=== PATIENT | male | born 1970 | race African-American/Black ===

== ENCOUNTER 2020-02-06 17:38 | Inpatient (IN) | payer MEDICAID ==
[2020-02-06 18:18] LABS: BASOPHILS % (AUTO) 0.3 %; EOSINOPHILS % (AUTO) 16.1 %; HGB - HEMOGLOBIN 13.3 g/dL (14.0-18.0); LYMPHOCYTES % (AUTO) 11.3 %; MEAN CORPUSCULAR HEMOGLOBIN 31.6 pg (27.0-31.0); MEAN CORPUSCULAR HGB CONC 33.6 g/dL (32.0-36.0); MEAN CORPUSCULAR VOLUME 94.1 fL (80.0-94.0); MONOCYTES % (AUTO) 2.7 %; NEUTROPHILS % (AUTO) 67.9 %; PLT - PLATELET COUNT 284 10^3/uL (130-450); RED BLOOD COUNT 4.21 10^6/uL (4.70-6.10); RED CELL DISTRIBUTION WIDTH 11.8 % (12.0-15.0); WHITE BLOOD COUNT 14.4 x10^3/uL (4.8-10.8)
[2020-02-06 18:26] LABS: ABNORMAL LYMPHS % (MANUAL) 0 %
[2020-02-06] MEDS ORDERED: SODIUM CHLORIDE 0.9% 1,000 ML IV STA (18:29)
--- NOTE | 2020-02-06 18:29 | ED Physician Documentation ---
History of Present Illness - Stated complaint Stated Complaint: FEVER, DIFF BREATHING - Chief complaint Chief Complaint: Resp - History obtained from History obtained from: Patient - History of Present Illness Timing: How many days ago (3) - Additonal information Additional information: 49-year-old male presents the emergency department for evaluation of shortness of air right-sided chest pain and fevers. For the last 3 days he reports fevers as high as 102. He states it hurts on the right side of his chest when he takes a deep breath. Nursing triage notes that he presented hypoxic with sat of 85% and was placed on 3L NC. On my exam in the room he is statting 97%. I turned the O2 off during the exam and he remain with sats in the high 90's. he is tachypneic without accesory muscle use No cough, no congestion, no loss of taste or smell. He denies abdominal pain nausea vomiting diarrhea or dysuria. No hemoptysis. He denies any travel or exposure to people who are sick or known Covid contacts. No unilateral leg swelling. He denies a family history of coronary artery disease or pulmonary embolism/DVT. He denies pertinent past medical history including hypertension or diabetes. He takes no routinely prescribed medications. he denies recent travel or travel out of the [facility]. He was born here. Social: 1/2 pack/day tobacco. Denies alcohol or illicit drugs. Review of Systems Constitutional: reports: Fever, Chills Eyes: reports: Reviewed and negative Ears: reports: Loss of hearing Nose: reports: Reviewed and negative Throat: reports: Reviewed and negative Cardiac: reports: Chest pain / pressure. denies: Palpitations, Pedal edema, Calf pain Respiratory: reports: Dyspnea. denies: Cough, Hemoptysis, Wheezing GI: denies: Abdominal Pain, Nausea, Vomiting, Diarrhea, Bloody / black stool : denies: Dysuria, Frequency, Hesitancy, Hematuria Skin: denies: Rash, Lesions Musculoskeletal: denies: Neck pain, Back pain Neurologic: reports: Headache. denies: Generalized weakness, Numbness, Difficulty speaking, Near syncope, Syncope, Altered mental status, LOC PD PAST MEDICAL HISTORY - Past Medical History Past Medical History: No - Past Surgical History Past Surgical History: No - Present Medications Home Medications: Ambulatory Orders Medication Instructions Recorded Confirmed No Known Home Medications 02/06/20 02/06/20 - Allergies Allergies/Adverse Reactions: Allergies Allergy/AdvReac Type Severity Reaction Status Date / Time No Known Drug Allergies Allergy Verified 02/06/20 18:20 - Social History Does the pt smoke?: Yes Smoking Status: Current every day smoker Does the pt drink ETOH?: No Does the pt have substance abuse?: Yes Substance Use and Type: Meth - Immunizations Immunizations are current?: Yes PD ED PE EXPANDED - General General: Alert, Other (appears ill) - HEENT HEENT: PERRL, EOMI, Dry mucous membranes, Pharynx normal - Neck Neck: Supple w/out meningeal sx, Adenopathy, No tenderness - Cardiac Cardiac: Regular Rate, Regular Rhythm, Radial strong equal, Pedal strong equal, Cap refill < 2 sec. No: Murmur Present - Respiratory Respiratory: Labored (tachypneic in ronda 30's), Other (Clear to auscultation upper lung fletcher. Pleural rub heard bilateral lower lung fletcher. No rhonchi wheeze or crackles.). No: Stridor, Accessory mm use, Retractions - Abdomen Abdomen: Decreased BS. No: Tender to palpation - Derm Derm: Normal color, Warm and dry. No: Rash - Extremities Extremities: Pedal Pulses Present. No: Pedal edema bilateral, Right calf TTP/cord, Left calf TTP/cord - Neuro Neuro: Alert and Oriented X 3, CNII-XII intact, Normal speech - GCS Eye Opening: Spontaneous Motor: Obeys Commands Verbal: Oriented Total: 15 Results - Vitals Vitals: Vital Signs - 24 hr 02/06/20 02/06/20 02/06/20 18:00 18:06 18:26 Temperature 38.8 C H Heart Rate 107 H 105 H Respiratory 43 H 34 H Rate Blood Pressure 103/80 107/75 O2 Saturation 100 84 L 100 02/06/20 02/06/20 02/06/20 18:50 19:20 19:50 Temperature Heart Rate 108 H 95 104 H Respiratory 30 H 28 H 33 H Rate Blood Pressure 100/60 108/78 106/78 O2 Saturation 100 95 100 02/06/20 20:00 Temperature Heart Rate 103 H Respiratory 34 H Rate Blood Pressure O2 Saturation 100 Oxygen O2 Source Nasal cannula Oxygen Flow Rate 4 - EKG (time done) 1831 Rate: Rate (enter#) (99) Rhythm: NSR [place]: Normal Intervals: Normal ME QRS: Normal Ischemia: ST elevation c/w repol Compare to prior EKG: Old EKG unavailable Computer interpretation: Agree with computer - Labs Labs: Laboratory Tests 02/06/20 02/06/20 02/06/20 18:06 18:06 18:06 WBC 14.4 H RBC 4.21 L Hgb 13.3 L Hct 39.6 L MCV 94.1 H MCH 31.6 H MCHC 33.6 RDW 11.8 L Plt Count 284 MPV 9.0 Neut # (Auto) Not Reportable Lymph # (Auto) Not Reportable Blount # (Auto) Not Reportable Eos # (Auto) Not Reportable Baso # (Auto) Not Reportable Absolute Nucleated RBC Not Reportable Total Counted 100 Band Neuts % (Manual) 29 H Reactive Lymphs % (Man) 7 Abnorm Lymph % (Manual) 0 Metamyelocytes % 8 H Nucleated RBC % Not Reportable Neutrophils # (Manual) 9.8 H Lymphocytes # (Manual) 2.3 Monocytes # (Manual) 1.2 H Eosinophils # (Manual) 0.0 Basophils # (Manual) 0.0 Differential Comment MANUAL DIFFERENTIAL Platelet Estimate NORMAL (130-450,000) Platelet Morphology NORMAL APPEARANCE RBC Morph Micro Appear NORMAL APPEARANCE Sodium 135 Potassium 4.2 Chloride 96 L Carbon Dioxide 26 Anion Gap 13.0 BUN 28 H Creatinine 1.7 H Estimated GFR (MDRD) 52 L Glucose 105 H Lactic Acid 3.2 H* Calcium 8.1 L Total Bilirubin 1.0 AST 27 ALT 28 Alkaline Phosphatase 71 Troponin I High Sens B-Natriuretic Peptide Total Protein 7.1 Albumin 3.3 Globulin 3.8 Albumin/Globulin Ratio 0.9 L Urine Color Urine Clarity Urine pH Ur Specific [place] Urine Protein Urine Glucose (UA) Urine Ketones Urine Occult Blood Urine Nitrite Urine Bilirubin Urine Urobilinogen Ur Leukocyte Esterase Urine RBC Urine WBC Ur Squamous Epith Cells Urine Bacteria Urine Culture Comments Nasal Adenovirus (PCR) Nasal B. parapertussis DNA (PCR) Nasal Coronavir 229E PCR Nasal Coronavir HKU1 PCR Nasal Coronavir NL63 PCR Nasal Coronavir OC43 PCR Nasal Enterovir/Rhinovir PCR Nasal Influenza B PCR Nasal Influenza A PCR Nasal Parainfluen 1 PCR Nasal Parainfluen 2 PCR Nasal Parainfluen 3 PCR Nasal Parainfluen 4 PCR Nasal RSV (PCR) Nasal B.pertussis DNA PCR Nasal C.pneumoniae (PCR) Dominik Human Metapneumo PCR Nasal M.pneumoniae (PCR) Nasal SARS-CoV-2 (PCR) 02/06/20 02/06/20 02/06/20 18:07 18:07 18:07 WBC RBC Hgb Hct MCV MCH MCHC RDW Plt Count MPV Neut # (Auto) Lymph # (Auto) Blount # (Auto) Eos # (Auto) Baso # (Auto) Absolute Nucleated RBC Total Counted Band Neuts % (Manual) Reactive Lymphs % (Man) Abnorm Lymph % (Manual) Metamyelocytes % Nucleated RBC % Neutrophils # (Manual) Lymphocytes # (Manual) Monocytes # (Manual) Eosinophils # (Manual) Basophils # (Manual) Differential Comment Platelet Estimate Platelet Morphology RBC Morph Micro Appear Sodium Potassium Chloride Carbon Dioxide Anion Gap BUN Creatinine Estimated GFR (MDRD) Glucose Lactic Acid Calcium Total Bilirubin AST ALT Alkaline Phosphatase Troponin I High Sens 4.8 B-Natriuretic Peptide 78 Total Protein Albumin Globulin Albumin/Globulin Ratio Urine Color Urine Clarity Urine pH Ur Specific [place] Urine Protein Urine Glucose (UA) Urine Ketones Urine Occult Blood Urine Nitrite Urine Bilirubin Urine Urobilinogen Ur Leukocyte Esterase Urine RBC Urine WBC Ur Squamous Epith Cells Urine Bacteria Urine Culture Comments Nasal Adenovirus (PCR) NOT DETECTED Nasal B. parapertussis DNA (PCR) NOT DETECTED Nasal Coronavir 229E PCR NOT DETECTED Nasal Coronavir HKU1 PCR NOT DETECTED Nasal Coronavir NL63 PCR NOT DETECTED Nasal Coronavir OC43 PCR NOT DETECTED Nasal Enterovir/Rhinovir PCR DETECTED A Nasal Influenza B PCR NOT DETECTED Nasal Influenza A PCR NOT DETECTED Nasal Parainfluen 1 PCR NOT DETECTED Nasal Parainfluen 2 PCR NOT DETECTED Nasal Parainfluen 3 PCR NOT DETECTED Nasal Parainfluen 4 PCR NOT DETECTED Nasal RSV (PCR) NOT DETECTED Nasal B.pertussis DNA PCR NOT DETECTED Nasal C.pneumoniae (PCR) NOT DETECTED Dominik Human Metapneumo PCR NOT DETECTED Nasal M.pneumoniae (PCR) NOT DETECTED Nasal SARS-CoV-2 (PCR) NOT DETECTED 02/06/20 19:53 WBC RBC Hgb Hct MCV MCH MCHC RDW Plt Count MPV Neut # (Auto) Lymph # (Auto) [place]ount # (Auto) Eos # (Auto) Baso # (Auto) Absolute Nucleated RBC Total Counted Band Neuts % (Manual) Reactive Lymphs % (Man) Abnorm Lymph % (Manual) Metamyelocytes % Nucleated RBC % Neutrophils # (Manual) Lymphocytes # (Manual) Monocytes # (Manual) Eosinophils # (Manual) Basophils # (Manual) Differential Comment Platelet Estimate Platelet Morphology RBC Morph Micro Appear Sodium Potassium Chloride Carbon Dioxide Anion Gap BUN Creatinine Estimated GFR (MDRD) Glucose Lactic Acid Calcium Total Bilirubin AST ALT Alkaline Phosphatase Troponin I High Sens B-Natriuretic Peptide Total Protein Albumin Globulin Albumin/Globulin Ratio Urine Color YELLOW Urine Clarity CLEAR Urine pH 5.5 Ur Specific [place] 1.020 Urine Protein TRACE Urine Glucose (UA) NEGATIVE Urine Ketones NEGATIVE Urine Occult Blood NEGATIVE Urine Nitrite NEGATIVE Urine Bilirubin NEGATIVE Urine Urobilinogen 2 H Ur Leukocyte Esterase NEGATIVE Urine RBC 0-5 Urine WBC 0-3 Ur Squamous Epith Cells FEW Squamous Urine Bacteria None Seen Urine Culture Comments NOT INDICATED Nasal Adenovirus (PCR) Nasal B. parapertussis DNA (PCR) Nasal Coronavir 229E PCR Nasal Coronavir HKU1 PCR Nasal Coronavir NL63 PCR Nasal Coronavir OC43 PCR Nasal Enterovir/Rhinovir PCR Nasal Influenza B PCR Nasal Influenza A PCR Nasal Parainfluen 1 PCR Nasal Parainfluen 2 PCR Nasal Parainfluen 3 PCR Nasal Parainfluen 4 PCR Nasal RSV (PCR) Nasal B.pertussis DNA PCR Nasal C.pneumoniae (PCR) Dominik Human Metapneumo PCR Nasal M.pneumoniae (PCR) Nasal SARS-CoV-2 (PCR) - Rads (name of study) CXR Radiology: Final report received (Right lung base consolidation and effusion superimposed on mild diffuse strandy opacities. Consider infectious or post obstructive pna) CT angio chest Radiology: Final report received (Dense right middle lobe consolidation with air bronchograms. This is likely infectious or inflammatory. ), See rad report PD MEDICAL DECISION MAKING - ED course Complexity details: reviewed results, re-evaluated patient, considered differential, d/w patient ED course: This is an ill-appearing 49-year-old male who denies any pertinent past medical history that presents with 3 days of fever up to 102 shortness of air and right- sided pleuritic chest pain. He initially presented with some mild hypoxia and tachypnea. He was placed on 3 L nasal cannula with saturations rising to 99%. Screening labs showed moderate leukocytosis of 14,000 with 29% bands. He does have mild renal insufficiency with a creatinine of 1.7. GFR remains greater than 50. Initial lactate was 3.2. 30 mils per kilo fluid resuscitation was initiated. He does meet the criteria for sepsis. Sepsis was identified at 183. Chest x-ray shows fairly large right lower lobe pneumonia. This gentleman was started on broad-spectrum antibiotics with ceftriaxone and azithromycin. CT of the chest shows a dense right middle love consolidation with bronchogram. 2030: I spoke with nocturnal hospitalist Dr. An who agrees to accept the patient for admission. he does request flagyl for better coverage of anerobes as this is an atypical pna for an otherwise well man with no pertinent pmh - Sepsis Event Current Stage of Sepsis: Sepsis Possible source of Sepsis: Pulmonary Mental/Cognitive Status: Alert/Oriented X3 Capillary refill: Less than 2 seconds Peripheral Pulse Strength: 3+ Normal Peripheral Pulse Location: Pedal Bedside ultrasound performed: No Sepsis Comment: Sepsis identified at 183 with elevated lactic acid. Bolus fluids initiated. Abx ordered Departure - Departure Disposition: 66 [facility] DC/Xfer Clinical Impression: Acute kidney insufficiency Pneumonia Qualifiers: Pneumonia type: due to unspecified organism Laterality: right Lung location: lower lobe of lung Qualified Code(s): J18.9 - Pneumonia, unspecified organism Sepsis Qualifiers: Sepsis type: sepsis due to unspecified organism Sepsis acute organ dysfunction status: with acute organ dysfunction Severe sepsis acute organ dysfunction type: acute respiratory failure Acute respiratory failure type: with hypoxia Severe sepsis shock status: without septic shock Qualified Code(s): A41.9 - Sepsis, unspecified organism
[2020-02-06 18:31] LABS: ALBUMIN 3.3 g/dL (3.2-5.5); ALBUMIN/GLOBULIN RATIO 0.9 (1.0-2.2); CALCIUM 8.1 mg/dL (8.5-10.3); CREATININE 1.7 mg/dL (0.6-1.2); TOTAL PROTEIN 7.1 g/dL (6.7-8.2)
[2020-02-06] MEDS ORDERED: LACTATED RINGERS IV STA (18:36)
[2020-02-06] MEDS ORDERED: IOVERSOL 320 100 ML VIAL IVP ONE ×2 (18:45→19:49)
[2020-02-06 18:49] LABS: BAND NEUTROPHILS % (MANUAL) 29 %; LYMPHOCYTES # (MANUAL) 2.3 10^3/uL (1.5-3.5); LYMPHOCYTES % (MANUAL) 9 %; METAMYELOCYTES % (MANUAL) 8 %; MONOCYTES # (MANUAL) 1.2 10^3/uL (0.0-1.0); RBC MORPHOLOGY (MULTIPLE) NORMAL APPEARANCE (NORMAL)
[2020-02-06 18:50] LABS: DIFFERENTIAL COMMENT MANUAL DIFFERENTIAL; PLATELET ESTIMATE, MANUAL NORMAL (130-450,000) (NORMAL); PLATELET MORPHOLOGY NORMAL APPEARANCE (NORMAL)
[2020-02-06] MEDS ORDERED: AZITHROMYCIN INJ 500 MG in SODIUM CHLORIDE 0.9% 250 ML IV STA (19:09)
[2020-02-06] MEDS ORDERED: cefTRIAXone 1 GM in SODIUM CHLORIDE 0.9% MINIBAG 100 ML IV STA (19:09)
[2020-02-06] MEDS ORDERED: cefTRIAXone 1 GM VIAL ONE (19:24)
--- NOTE | 2020-02-06 19:28 | XRAY Report ---
PROCEDURE: Chest 1 View X-Ray INDICATIONS: chest pain TECHNIQUE: One view of the chest was acquired. COMPARISON: None FINDINGS: Surgical changes and devices: None. Lungs and pleura: Moderate sized right lung base opacity, likely combination of consolidation and eff usion which obscures the right diaphragmatic contour. Minor strandy opacities are seen in the perihil ar regions elsewhere. Mediastinum: Mediastinal contours appear normal. Slight cephalization of central vessels, possibly s econdary to technique. Heart size is normal. Bones and chest wall: No suspicious bony lesions. Overlying soft tissues appear unremarkable. IMPRESSION: 1. Right lung base consolidation and effusion superimposed on mild diffuse strandy opacities. Conside r infectious or postobstructive pneumonia. This may be also secondary to underlying liver condition b elow the diaphragm. Reviewed by: Zenobia Guerra MD on 02/06/2020 7:26 PM PST Approved by: Zenobia Guerra MD on 02/06/2020 7:26 PM PST Station ID: [id number]
[2020-02-06 19:29] LABS: C. PNEUMONIAE- RESP PCR PANEL NOT DETECTED
[2020-02-06 20:02] LABS: BILIRUBIN,URINE NEGATIVE (NEGATIVE); GLUCOSE, URINE (UA) NEGATIVE (NEGATIVE); KETONES,URINE (UA) NEGATIVE (NEGATIVE); LEUKOCYTE ESTERASE, URINE NEGATIVE (NEGATIVE); NITRITE,URINE NEGATIVE (NEGATIVE); OCCULT BLOOD,URINE NEGATIVE (NEGATIVE); PH,URINE 5.5 PH (5.0-7.5); PROTEIN,URINE TRACE mg/dL (NEGATIVE); UROBILINOGEN,URINE 2 E.U./dL (NORMAL)
[2020-02-06 20:09] LABS: CLARITY,URINE CLEAR (CLEAR)
[2020-02-06 20:18] LABS: BACTERIA,URINE None Seen /HPF (None Seen); RBC,URINE 0-5 /HPF (0-5); SQUAMOUS EPITHELIAL CELL,UR FEW Squamous (<= Few)
--- NOTE | 2020-02-06 20:19 | CT Report ---
PROCEDURE: ANGIO CHEST W/WO INDICATIONS: fever, sob; right sided pleuritic chest pain CONTRAST: IV CONTRAST: Optiray 320 ml: 80 PO CONTRAST: *NO PO CONTRAST TECHNIQUE: After the administration of intravenous contrast, 2 mm thick sections acquired from the pulmonary api tati to the posterior costophrenic angles. 3-dimensional maximum intensity projection (MIP) coronal a nd sagittal reformats were then acquired through the thorax. For radiation dose reduction, the follow ing was used: automated exposure control, adjustment of mA and/or kV according to patient size. COMPARISON: Correlation made to chest CT performed the same day. FINDINGS: Image quality: Excellent. Pulmonary arteries: Pulmonary arteries are normal in size, and demonstrate no intraluminal filling d efects to suggest central pulmonary embolism. Lungs and pleura: Complete consolidation throughout the right middle lobe. Minor alveolar opacity po steriorly in the right upper lobe and in a patchy distribution throughout the right lower lobe, most confluent at the bases. Tree-in-bud nodular patchy opacity in the left posterior medial lower lung. T here are a few rounded subpleural solid nodules measuring up to 5 mm posteriorly in the left lung as well. Paraseptal emphysematous changes seen in the lung apices. There are air bronchograms throughout the right middle lobe, though right lower lobe airways appear thickened and many are occluded at the base. Minimal right pleural effusion is present. No pneumothorax. Mediastinum: Heart size is normal, without pericardial effusion. There is subcarinal and right hilar adenopathy.. Thoracic aorta is normal in caliber and enhancement. Esophagus is normal in caliber, without hiatal hernia. Bones and chest wall: No suspicious bony lesions. Ribs and thoracic spine appear intact throughout. The thyroid is normal. No axillary or supraclavicular adenopathy. Abdomen: Visualized upper abdominal solid organs appear normal in the early arterial phase of enhanc ement. IMPRESSION: 1. Dense right middle lobe consolidation with air bronchograms. This is likely infectious or inflamma tory. 2. Patchy alveolar consolidation and airway impaction in much of the right lower lobe and to a lesser extent posterior right upper lobe. 3. Mild pneumonitis posterior medially at the left lung base. 4. Several left lung posterior subpleural lung nodules. Follow-up in 6 months to begin to assess for long-term stability is recommended. 5. No pulmonary embolus. Reviewed by: Zenobia Guerra MD on 02/06/2020 8:17 PM PST Approved by: Zenobia Guerra MD on 02/06/2020 8:17 PM PST Station ID: [id number]
[2020-02-06] MEDS ORDERED: ONDANSETRON 4 MG/2 ML VIAL IVP PRN (20:27)
[2020-02-06] MEDS ORDERED: metroNIDAZOLE 500 MG/100 ML 500 MG/100 ML BAG IV ONE (20:27)
[2020-02-06] MEDS ORDERED: oxyCODONE 5 MG TABLET PO PRN (20:27)
[2020-02-06] MEDS ORDERED: SODIUM CHLORIDE FLUSH 0.9% 10 ML SYRINGE IVP PRN (20:27)
[2020-02-06] MEDS ORDERED: ACETAMINOPHEN 325 MG TABLET PO PRN (20:27)
--- NOTE | 2020-02-06 20:35 | HISTORY & PHYSICAL EXAMINATION ---
Chief Complaint - Chief Complaint Chief Complaint: dyspnea History of Present Illness - Admitted From Admitted From:: [facility] ED - History Obtained From Records Reviewed: yes History obtained from: patient - History of Present Illness HPI Comment/Other: Patient is a 49-year-old male with no medical history and currently on no medications who presented to the ED with complaint of dyspnea, hypoxia, tachypnea and a temperature of 102 Fahrenheit. His symptoms have been going on for the past 3 days. He also reports a productive cough of greenish/yellowish sputum. In the ED he was noted to have a temperature as high as 39 C, respiratory rate as high as 30 and oxygen saturation in the 80s on room air. Work-up in the ED included a chest x-ray and a CT angio of the chest which was negative for PE but showed dense right middle and right lower lobe consolidation with air bronchograms. The patient had a white blood cell count of 13 and a lactic acid of 3.2. At bedside he is sleeping but is able to arouse and answer questions appro priately. He denies chest pain, abdominal pain, nausea, vomiting. He denies a previous occurrence of similar symptoms. He smokes heroin and methamphetamine daily. He last did so within 2 hours prior to presentation to the ED. He denies alcohol use and denies ever passing out or blacking out. On auscultation of the lungs he sounds significantly rhonchorous on the right side. He is also tachycardic. As a result of the radiologic, laboratory and clinical findings he was presented for admission for further treatment. History - Past Medical History MRSA Hx?: No Other Past Medical History: Patient denies any medical history - Past Surgical History Other past surgical history: Patient denies any surgical history - Family & Social History Family History Comment/Other: Patient denies any significant family history Social History Notes: He lives alone. He smokes about half a pack of cigarettes daily for the past 8 years. He also smokes methamphetamine and heroin daily. He denies alcohol use. - POLST Patient has POLST: No POLST Status: Full Code Meds/Allgy - Home Medications Home Medications: Ambulatory Orders Medication Instructions Recorded Confirmed No Known Home Medications 02/06/20 02/06/20 - Allergies Allergies/Adverse Reactions: Allergies Allergy/AdvReac Type Severity Reaction Status Date / Time No Known Drug Allergies Allergy Verified 02/06/20 18:20 Review of Systems - Constitutional Constitutional: reports: Fever, Weakness - Eyes Eyes: denies: Pain, Vision loss, Dipolpia - Ears, Nose & Throat Ears, Nose & Throat: denies: Ear pain, Sore throat - Cardiovascular Cariovascular: denies: Irregular heart rate, Chest pain, Edema, Lightheadedness - Respiratory Respiratory: reports: Cough, Sputum production (yellowish-greenish), SOB at rest, SOB with exertion, Pleuritic pain, Other (rhonchous) - Gastrointestinal Gastrointestinal: denies: Abdominal pain, Abdominal distention, Nausea, Vomiting, Coffee grounds emesis, Reflux/heartburn - Genitourinary Genitourinary: denies: Dysuria, Frequency, Urgency, Hematuria, Flank pain - Musculoskeletal Musculoskeletal: denies: Muscle pain, Back pain, Muscle aches, Stiffness - Integumentary Integumentary: denies: Rash, Pruritis, Lesions - Neurological Neurological: reports: General weakness. denies: Focal weakness, Headache, Dizziness - Psychiatric Psychiatric: denies: Depression, Anxiety, Suicidal - Endocrine Endocrine: denies: Polyuria, Polydypsia - Hematologic/Lymphatic Hematologic/Lymphatic: denies: Anemia, Bruising, Petechiae Prior Level of Functionality: Patient is normally independent of activities of daily living Exam - Vital Signs Vital Signs: Vital Signs x48h Temp Pulse Resp BP Pulse Ox 02/06/20 20:00 103 H 34 H 100 02/06/20 19:50 104 H 33 H 106/78 100 02/06/20 19:20 95 28 H 108/78 95 02/06/20 18:50 108 H 30 H 100/60 100 02/06/20 18:26 105 H 34 H 107/75 100 02/06/20 18:06 84 L 02/06/20 18:00 38.8 C H 107 H 43 H 103/80 100 - Physical Exam General Appearance: positive: Alert, Mild distress, Moderate distress Eyes Bilateral: positive: PERRL, EOMI ENT: positive: Dry mucous membranes Neck: positive: No JVD, Trachea midline Respiratory: positive: Chest non-tender, No respiratory distress, Rales, Rhonchi Cardiovascular: positive: No murmur, Tachycardia Abdomen: positive: Non-tender, No organomegaly, Nml bowel sounds, No distention. negative: Guarding, Rebound Back: positive: Nml inspection Skin: positive: Color nml, No rash, Warm, Dry Extremities: positive: Full ROM, Nml appearance, No pedal edema Neurologic/Psychiatric: positive: Oriented x3, Mood/affect nml Sepsis Event Note (H) - Evaluation Current Stage of Sepsis: Sepsis Possible source of Sepsis: positive: Pulmonary - Sepsis Criteria Sepsis Criteria: Recorded Temperature greater than 38.3C or Less than 36C, Re corded Heart Rate greater than 90 bpm, Recorded Respiratory Rate greater than 20, Respiratory: Increasing oxygen requirements, WBC count greater than 10% bands, WBC count greater than 12,000 or less than 4000, Renal: urine output less than 0.5ml/kg/hr for 2 hours or creatinine gr, Metabolic: lactate > 2 mmol/L Conclusion/Plan - Problem List (1) Sepsis Conclusion/Plan: Secondary to pneumonia. Patient's pneumonia is likely due to inhalation of talc and or impurities when smoking methamphetamine and/or heroin. Cannot rule out aspiration as well. Findings on CT scan of the chest are significant/extensive. Patient was given IV hydration in the ED. We will continue IV hydration with normal saline at 150 mils per hour. Patient was started on Rocephin, azithromycin and Flagyl in the ED. If no improvement in patient's clinical symptoms will consider switching antibiotics around 2 vancomycin and Zosyn and also doing a 2D echo. Blood cultures are pending. Initial lactic acid was 3.2. It is trending down. We will continue to monitor. Qualifiers: Sepsis type: sepsis due to unspecified organism Sepsis acute organ dysfunction status: with acute organ dysfunction Severe sepsis acute organ dysfunction type: acute respiratory failure Acute respiratory failure type: with hypoxia Severe sepsis shock status: without septic shock Qualified Code(s): A41.9 - Sepsis, unspecified organism; R65.20 - Severe sepsis without septic shock; J96.01 - Acute respiratory failure with hypoxia (2) Pneumonia Conclusion/Plan: Patient's pneumonia is likely due to inhalation of talc and or impurities when smoking methamphetamine and/or heroin. Cannot rule out aspiration as well. Findings on CT scan of the chest are significant/extensive. Patient was given IV hydration in the ED. We will continue IV hydration with normal saline at 150 mils per hour. Patient was started on Rocephin, azithromycin and Flagyl in the ED. If no improvement in patient's clinical symptoms will consider switching antibiotics around 2 vancomycin and Zosyn and also doing a 2D echo. Blood cultures are pending. Initial lactic acid was 3.2. It is trending down. We will continue to monitor. Will consider repeating imaging (CT chest) in a few days to assess for improvement or progression of patient's infection Qualifiers: Pneumonia type: due to unspecified organism Laterality: right Lung location: lower lobe of lung Qualified Code(s): J18.9 - Pneumonia, unspecified organism (3) Acute kidney insufficiency Conclusion/Plan: Creatinine was 1.7 with a GFR of 52. Likely due to dehydration and infection. Patient was given a bolus of lactated Ringer's in the ED. We will continue IV hydration with normal saline at 150 mils per hour. Anticipating improvement in patient's renal function. Will recheck with a.m. labs. (4) Drug use Conclusion/Plan: Patient smokes methamphetamine and heroin on a daily basis. His last use was about 2 hours before presentation to the ED. This was reflected in patient's urine drug screen. We will avoid any opiate. - Lab Results Fish Bones: 02/06/20 18:06 02/06/20 18:06 Core Measures - Anticipated LOS I expect patient to be DC'd or transferred within 96 hours.: Yes - DVT/VTE - Prophylaxis VTE/DVT Device ordered at admit?: Yes VTE/DVT Prophylaxis med ordered at admit?: Yes
[2020-02-06 21:16] LABS: MUDS CUTOFF CONCENTRATIONS CUTOFF CONC BELOW:
[2020-02-06 21:31] LABS: AMPHETAMINE SCREEN,URINE POSITIVE (NEGATIVE); BENZODIAZEPINES SCREEN, URINE NEGATIVE (NEGATIVE); COCAINE SCREEN URINE NEGATIVE (NEGATIVE); METHADONE SCREEN, URINE NEGATIVE (NEGATIVE); METHAMPHETAMINES SCREEN, URINE POSITIVE (NEGATIVE); OPIATE SCREEN, URINE POSITIVE (NEGATIVE); TRICYCLIC ANTIDEPRESSANT,URINE NEGATIVE (NEGATIVE)
[2020-02-06 21:32] LABS: OXYCODONE SCREEN, URINE NEGATIVE (NEGATIVE); PROPOXYPHENE SCREEN, URINE NEGATIVE (NEGATIVE)
[2020-02-06] MEDS ORDERED: LORazepam 1 MG TABLET PO PRN (21:51)
[2020-02-06] MEDS: SODIUM CHLORIDE 0.9% 1,000 ML IV SCH (22:26)
[2020-02-07] MEDS: SODIUM CHLORIDE FLUSH 0.9% 10 ML SYRINGE IVP SCH ×3 (00:12→17:01)
[2020-02-07] MEDS ORDERED: metroNIDAZOLE 500 MG/100 ML 500 MG/100 ML BAG IV SCH (05:00)
[2020-02-07] MEDS: PANTOPRAZOLE 40 MG TABLET PO SCH (05:56)
[2020-02-07 06:00] LABS: BASOPHILS # (AUTO) 0.1 10^3/uL (0.0-0.1); BASOPHILS % (AUTO) 0.4 %; EOSINOPHILS # (AUTO) 0.3 10^3/uL (0.0-0.7); EOSINOPHILS % (AUTO) 1.7 %; HGB - HEMOGLOBIN 11.5 g/dL (14.0-18.0); LYMPHOCYTES # (AUTO) 1.5 10^3/uL (1.5-3.5); LYMPHOCYTES % (AUTO) 8.4 %; MEAN CORPUSCULAR HEMOGLOBIN 31.2 pg (27.0-31.0); MEAN CORPUSCULAR HGB CONC 33.3 g/dL (32.0-36.0); MEAN CORPUSCULAR VOLUME 93.5 fL (80.0-94.0); MEAN PLATELET VOLUME 8.7 fL (7.4-11.4); MONOCYTES # (AUTO) 0.8 10^3/uL (0.0-1.0); MONOCYTES % (AUTO) 4.8 %; NEUTROPHILS # (AUTO) 14.6 10^3/uL (1.5-6.6); NEUTROPHILS % (AUTO) 84.1 %; PLT - PLATELET COUNT 230 10^3/uL (130-450); RED BLOOD COUNT 3.69 10^6/uL (4.70-6.10); RED CELL DISTRIBUTION WIDTH 11.7 % (12.0-15.0); WHITE BLOOD COUNT 17.3 x10^3/uL (4.8-10.8)
[2020-02-07 06:08] LABS: CREATININE 1.1 mg/dL (0.6-1.2)
[2020-02-07 06:29] LABS: PLATELET ESTIMATE, MANUAL NORMAL (130-450,000) (NORMAL); PLATELET MORPHOLOGY NORMAL APPEARANCE (NORMAL); RBC MORPHOLOGY (MULTIPLE) NORMAL APPEARANCE (NORMAL)
--- NOTE | 2020-02-07 07:19 | PROVIDER PROGRESS NOTE ---
Subjective - Prog Note Date Prog Note Date: 02/07/20 - Subjective Subjective: He reports feeling better. Still has a little dyspnea and cough. Reports no chest pain. He admits to smoking heroin and methamphetamines on a near daily basis. Denies any history of IV drug abuse. He is agreeable to being tested for HIV. Current Medications - Current Medications Current Medications: Active Medications Acetaminophen (Acetaminophen 325 Mg Tablet) 650 mg PO Q4HR PRN PRN Reason: Pain 1 to 4 Azithromycin (Azithromycin 250 Mg Tablet) 500 mg PO DAILY@1700 [facility] Stop: 02/08/20 17:01 Enoxaparin Sodium (Enoxaparin 40 Mg/0.4 Ml Syringe) 40 mg SUBQ DAILY [facility] Last Admin: 02/07/20 08:20 Dose: 40 mg Documented by: Sodium Chloride (Normal Saline 0.9%) 1,000 mls @ 100 mls/hr IV .Q10H [facility] Last Admin: 02/07/20 08:19 Dose: 100 mls/hr Documented by: Ceftriaxone Sodium 2 gm/ (Sodium Chloride) 100 mls @ 200 mls/hr IV DAILY [facility] Ondansetron HCl (Ondansetron 4 Mg/2 Ml Vial) 4 mg IVP Q6HR PRN PRN Reason: Nausea / Vomiting Pantoprazole Sodium (Pantoprazole 40 Mg Tablet) 40 mg PO QDAC [facility] Last Admin: 02/07/20 05:56 Dose: 40 mg Documented by: Sodium Chloride (Sodium Chloride Flush 0.9% 10 Ml Syringe) 10 ml IVP PRN PRN PRN Reason: NEEDED PER PROVIDER ORDERS Last Admin: 02/07/20 08:30 Dose: 10 ml Documented by: Sodium Chloride (Sodium Chloride Flush 0.9% 10 Ml Syringe) 10 ml IVP 0100,0900,1700 [facility] Last Admin: 02/07/20 08:20 Dose: Not Given Documented by: No Known Home Medications 02/06/20 Objective - Vital Signs/Intake & Output Reviewed Vital Signs: Yes Vital Signs: Vital Signs x48h Temp Pulse Resp BP Pulse Ox 02/07/20 04:33 37.4 C 102 H 26 H 114/69 95 02/07/20 00:13 36.7 C 104 H 28 H 111/68 94 Intake & Output: Intake & Output 02/04/20 02/05/20 02/06/2020 23:59 23:59 23:59 23:59 Intake Total 4077.157 100 Output Total 800 225 Balance 3277.157 -125 - Objective General Appearance: positive: No acute distress, Alert Eyes Bilateral: positive: Normal inspection ENT: positive: ENT inspection nml Neck: positive: Nml inspection Respiratory: positive: No respiratory distress, Rhonchi (Left lung field), Other (Diminished breath sounds.). negative: Wheezes, Rales Cardiovascular: positive: Tachycardia. negative: Irregularly irregular, Systolic murmur Abdomen: positive: Non-tender, No distention. negative: Tenderness Skin: positive: Warm, Dry Extremities: positive: Full ROM, No pedal edema Neurologic/Psychiatric: negative: Disoriented to person, Disoriented to place - Lab Results Fish Bones: 02/07/20 05:47 02/07/20 05:47 Other Labs: Lab Results x24hrs 02/07/20 02/07/20 02/07/20 Range/Units 05:47 05:47 05:47 WBC 17.3 H (4.8-10.8) x10^3/uL RBC 3.69 L (4.70-6.10) 10^6/uL Hgb 11.5 L (14.0-18.0) g/dL Hct 34.5 L (42.0-52.0) % MCV 93.5 (80.0-94.0) fL MCH 31.2 H (27.0-31.0) pg MCHC 33.3 (32.0-36.0) g/dL RDW 11.7 L (12.0-15.0) % Plt Count 230 (130-450) 10^3/uL MPV 8.7 (7.4-11.4) fL Neut # (Auto) 14.6 H Lymph # (Auto) 1.5 [place] # (Auto) 0.8 Eos # (Auto) 0.3 Baso # (Auto) 0.1 Absolute Nucleated RBC 0.00 Total Counted Band Neuts % (Manual) (0 - 10) % Reactive Lymphs % (Man) % Abnorm Lymph % (Manual) % Metamyelocytes % ( - 0) % Nucleated RBC % 0.0 Neutrophils # (Manual) (1.5-6.6) 10^3/uL Lymphocytes # (Manual) (1.5-3.5) 10^3/uL Monocytes # (Manual) (0.0-1.0) 10^3/uL Eosinophils # (Manual) (0-0.7) 10^3/uL Basophils # (Manual) (0-0.1) 10^3/uL Differential Comment Manual Slide Review Indicated Platelet Estimate NORMAL (130-450,000) (NORMAL) Platelet Morphology NORMAL APPEARANCE (NORMAL) RBC Morph Micro Appear NORMAL APPEARANCE (NORMAL) Sodium 138 (135-145) mmol/L Potassium 3.7 (3.5-5.0) mmol/L Chloride 106 (101-111) mmol/L Carbon Dioxide 24 (21-32) mmol/L Anion Gap 8.0 (6-13) BUN 23 H (6-20) mg/dL Creatinine 1.1 (0.6-1.2) mg/dL Estimated GFR (MDRD) 86 L (>89) Glucose 88 (70-100) mg/dL Lactic Acid 1.0 (0.5-2.2) mmol/L Calcium 8.0 L (8.5-10.3) mg/dL Total Bilirubin (0.2-1.0) mg/dL AST (10-42) IU/L ALT (10-60) IU/L Alkaline Phosphatase (42-121) IU/L Troponin I High Sens (2.3-19.7) ng/L B-Natriuretic Peptide (5-100) pg/mL Total Protein (6.7-8.2) g/dL Albumin (3.2-5.5) g/dL Globulin (2.1-4.2) g/dL Albumin/Globulin Ratio (1.0-2.2) Urine Color Urine Clarity (CLEAR) Urine pH (5.0-7.5) PH Ur Specific [place] (1.002-1.030) Urine Protein (NEGATIVE) mg/dL Urine Glucose (UA) (NEGATIVE) mg/dL Urine Ketones (NEGATIVE) mg/dL Urine Occult Blood (NEGATIVE) Urine Nitrite (NEGATIVE) Urine Bilirubin (NEGATIVE) Urine Urobilinogen (NORMAL) E.U./dL Ur Leukocyte Esterase (NEGATIVE) Urine RBC (0-5) /HPF Urine WBC (0-3) /HPF Ur Squamous Epith Cells (<= Few) Urine Bacteria (None Seen) /HPF Urine Culture Comments Nasal Adenovirus (PCR) Nasal B. parapertussis DNA (PCR) Nasal Coronavir 229E PCR Nasal Coronavir HKU1 PCR Nasal Coronavir NL63 PCR Nasal Coronavir OC43 PCR Nasal Enterovir/Rhinovir PCR Nasal Influenza B PCR Nasal Influenza A PCR Nasal Parainfluen 1 PCR Nasal Parainfluen 2 PCR Nasal Parainfluen 3 PCR Nasal Parainfluen 4 PCR Nasal RSV (PCR) Nasal B.pertussis DNA PCR Nasal C.pneumoniae (PCR) Dominik Human Metapneumo PCR Nasal M.pneumoniae (PCR) Nasal SARS-CoV-2 (PCR) Urine Opiates Screen (NEGATIVE) Ur Oxycodone Screen (NEGATIVE) Urine Methadone Screen (NEGATIVE) Ur Propoxyphene Screen (NEGATIVE) Ur Barbiturates Screen (NEGATIVE) Ur Tricyclics Screen (NEGATIVE) Ur Phencyclidine Scrn (NEGATIVE) Ur Amphetamine Screen (NEGATIVE) U Methamphetamines Scrn (NEGATIVE) U Benzodiazepines Scrn (NEGATIVE) Urine Cocaine Screen (NEGATIVE) U Cannabinoids Screen (NEGATIVE) 02/07/20 02/06/20 02/06/20 Range/Units 02:25 23:30 20:29 WBC (4.8-10.8) x10^3/uL RBC (4.70-6.10) 10^6/uL Hgb (14.0-18.0) g/dL Hct (42.0-52.0) % MCV (80.0-94.0) fL MCH (27.0-31.0) pg MCHC (32.0-36.0) g/dL RDW (12.0-15.0) % Plt Count (130-450) 10^3/uL MPV (7.4-11.4) fL Neut # (Auto) Lymph # (Auto) [place] # (Auto) Eos # (Auto) Baso # (Auto) Absolute Nucleated RBC Total Counted Band Neuts % (Manual) (0 - 10) % Reactive Lymphs % (Man) % Abnorm Lymph % (Manual) % Metamyelocytes % ( - 0) % Nucleated RBC % Neutrophils # (Manual) (1.5-6.6) 10^3/uL Lymphocytes # (Manual) (1.5-3.5) 10^3/uL Monocytes # (Manual) (0.0-1.0) 10^3/uL Eosinophils # (Manual) (0-0.7) 10^3/uL Basophils # (Manual) (0-0.1) 10^3/uL Differential Comment Manual Slide Review Platelet Estimate (NORMAL) Platelet Morphology (NORMAL) RBC Morph Micro Appear (NORMAL) Sodium (135-145) mmol/L Potassium (3.5-5.0) mmol/L Chloride (101-111) mmol/L Carbon Dioxide (21-32) mmol/L Anion Gap (6-13) BUN (6-20) mg/dL Creatinine (0.6-1.2) mg/dL Estimated GFR (MDRD) (>89) Glucose (70-100) mg/dL Lactic Acid 1.2 2.5 H 2.9 H (0.5-2.2) mmol/L Calcium (8.5-10.3) mg/dL Total Bilirubin (0.2-1.0) mg/dL AST (10-42) IU/L ALT (10-60) IU/L Alkaline Phosphatase (42-121) IU/L Troponin I High Sens (2.3-19.7) ng/L B-Natriuretic Peptide (5-100) pg/mL Total Protein (6.7-8.2) g/dL Albumin (3.2-5.5) g/dL Globulin (2.1-4.2) g/dL Albumin/Globulin Ratio (1.0-2.2) Urine Color Urine Clarity (CLEAR) Urine pH (5.0-7.5) PH Ur Specific [place] (1.002-1.030) Urine Protein (NEGATIVE) mg/dL Urine Glucose (UA) (NEGATIVE) mg/dL Urine Ketones (NEGATIVE) mg/dL Urine Occult Blood (NEGATIVE) Urine Nitrite (NEGATIVE) Urine Bilirubin (NEGATIVE) Urine Urobilinogen (NORMAL) E.U./dL Ur Leukocyte Esterase (NEGATIVE) Urine RBC (0-5) /HPF Urine WBC (0-3) /HPF Ur Squamous Epith Cells (<= Few) Urine Bacteria (None Seen) /HPF Urine Culture Comments Nasal Adenovirus (PCR) Nasal B. parapertussis DNA (PCR) Nasal Coronavir 229E PCR Nasal Coronavir HKU1 PCR Nasal Coronavir NL63 PCR Nasal Coronavir OC43 PCR Nasal Enterovir/Rhinovir PCR Nasal Influenza B PCR Nasal Influenza A PCR Nasal Parainfluen 1 PCR Nasal Parainfluen 2 PCR Nasal Parainfluen 3 PCR Nasal Parainfluen 4 PCR Nasal RSV (PCR) Nasal B.pertussis DNA PCR Nasal C.pneumoniae (PCR) Dominik Human Metapneumo PCR Nasal M.pneumoniae (PCR) Nasal SARS-CoV-2 (PCR) Urine Opiates Screen (NEGATIVE) Ur Oxycodone Screen (NEGATIVE) Urine Methadone Screen (NEGATIVE) Ur Propoxyphene Screen (NEGATIVE) Ur Barbiturates Screen (NEGATIVE) Ur Tricyclics Screen (NEGATIVE) Ur Phencyclidine Scrn (NEGATIVE) Ur Amphetamine Screen (NEGATIVE) U Methamphetamines Scrn (NEGATIVE) U Benzodiazepines Scrn (NEGATIVE) Urine Cocaine Screen (NEGATIVE) U Cannabinoids Screen (NEGATIVE) 02/06/20 02/06/20 02/06/20 Range/Units 19:56 19:53 18:07 WBC (4.8-10.8) x10^3/uL RBC (4.70-6.10) 10^6/uL Hgb (14.0-18.0) g/dL Hct (42.0-52.0) % MCV (80.0-94.0) fL MCH (27.0-31.0) pg MCHC (32.0-36.0) g/dL RDW (12.0-15.0) % Plt Count (130-450) 10^3/uL MPV (7.4-11.4) fL Neut # (Auto) Lymph # (Auto) [place] # (Auto) Eos # (Auto) Baso # (Auto) Absolute Nucleated RBC Total Counted Band Neuts % (Manual) (0 - 10) % Reactive Lymphs % (Man) % Abnorm Lymph % (Manual) % Metamyelocytes % ( - 0) % Nucleated RBC % Neutrophils # (Manual) (1.5-6.6) 10^3/uL Lymphocytes # (Manual) (1.5-3.5) 10^3/uL Monocytes # (Manual) (0.0-1.0) 10^3/uL Eosinophils # (Manual) (0-0.7) 10^3/uL Basophils # (Manual) (0-0.1) 10^3/uL Differential Comment Manual Slide Review Platelet Estimate (NORMAL) Platelet Morphology (NORMAL) RBC Morph Micro Appear (NORMAL) Sodium (135-145) mmol/L Potassium (3.5-5.0) mmol/L Chloride (101-111) mmol/L Carbon Dioxide (21-32) mmol/L Anion Gap (6-13) BUN (6-20) mg/dL Creatinine (0.6-1.2) mg/dL Estimated GFR (MDRD) (>89) Glucose (70-100) mg/dL Lactic Acid (0.5-2.2) mmol/L Calcium (8.5-10.3) mg/dL Total Bilirubin (0.2-1.0) mg/dL AST (10-42) IU/L ALT (10-60) IU/L Alkaline Phosphatase (42-121) IU/L Troponin I High Sens (2.3-19.7) ng/L B-Natriuretic Peptide 78 (5-100) pg/mL Total Protein (6.7-8.2) g/dL Albumin (3.2-5.5) g/dL Globulin (2.1-4.2) g/dL Albumin/Globulin Ratio (1.0-2.2) Urine Color YELLOW Urine Clarity CLEAR (CLEAR) Urine pH 5.5 (5.0-7.5) PH Ur Specific [place] 1.020 (1.002-1.030) Urine Protein TRACE (NEGATIVE) mg/dL Urine Glucose (UA) NEGATIVE (NEGATIVE) mg/dL Urine Ketones NEGATIVE (NEGATIVE) mg/dL Urine Occult Blood NEGATIVE (NEGATIVE) Urine Nitrite NEGATIVE (NEGATIVE) Urine Bilirubin NEGATIVE (NEGATIVE) Urine Urobilinogen 2 H (NORMAL) E.U./dL Ur Leukocyte Esterase NEGATIVE (NEGATIVE) Urine RBC 0-5 (0-5) /HPF Urine WBC 0-3 (0-3) /HPF Ur Squamous Epith Cells FEW Squamous (<= Few) Urine Bacteria None Seen (None Seen) /HPF Urine Culture Comments NOT INDICATED Nasal Adenovirus (PCR) Nasal B. parapertussis DNA (PCR) Nasal Coronavir 229E PCR Nasal Coronavir HKU1 PCR Nasal Coronavir NL63 PCR Nasal Coronavir OC43 PCR Nasal Enterovir/Rhinovir PCR Nasal Influenza B PCR Nasal Influenza A PCR Nasal Parainfluen 1 PCR Nasal Parainfluen 2 PCR Nasal Parainfluen 3 PCR Nasal Parainfluen 4 PCR Nasal RSV (PCR) Nasal B.pertussis DNA PCR Nasal C.pneumoniae (PCR) Dominik Human Metapneumo PCR Nasal M.pneumoniae (PCR) Nasal SARS-CoV-2 (PCR) Urine Opiates Screen POSITIVE H (NEGATIVE) Ur Oxycodone Screen NEGATIVE (NEGATIVE) Urine Methadone Screen NEGATIVE (NEGATIVE) Ur Propoxyphene Screen NEGATIVE (NEGATIVE) Ur Barbiturates Screen NEGATIVE (NEGATIVE) Ur Tricyclics Screen NEGATIVE (NEGATIVE) Ur Phencyclidine Scrn NEGATIVE (NEGATIVE) Ur Amphetamine Screen POSITIVE H (NEGATIVE) U Methamphetamines Scrn POSITIVE H (NEGATIVE) U Benzodiazepines Scrn NEGATIVE (NEGATIVE) Urine Cocaine Screen NEGATIVE (NEGATIVE) U Cannabinoids Screen POSITIVE H (NEGATIVE) 02/06/20 02/06/20 02/06/20 Range/Units 18:07 18:07 18:06 WBC (4.8-10.8) x10^3/uL RBC (4.70-6.10) 10^6/uL Hgb (14.0-18.0) g/dL Hct (42.0-52.0) % MCV (80.0-94.0) fL MCH (27.0-31.0) pg MCHC (32.0-36.0) g/dL RDW (12.0-15.0) % Plt Count (130-450) 10^3/uL MPV (7.4-11.4) fL Neut # (Auto) Lymph # (Auto) [place] # (Auto) Eos # (Auto) Baso # (Auto) Absolute Nucleated RBC Total Counted Band Neuts % (Manual) (0 - 10) % Reactive Lymphs % (Man) % Abnorm Lymph % (Manual) % Metamyelocytes % ( - 0) % Nucleated RBC % Neutrophils # (Manual) (1.5-6.6) 10^3/uL Lymphocytes # (Manual) (1.5-3.5) 10^3/uL Monocytes # (Manual) (0.0-1.0) 10^3/uL Eosinophils # (Manual) (0-0.7) 10^3/uL Basophils # (Manual) (0-0.1) 10^3/uL Differential Comment Manual Slide Review Platelet Estimate (NORMAL) Platelet Morphology (NORMAL) RBC Morph Micro Appear (NORMAL) Sodium (135-145) mmol/L Potassium (3.5-5.0) mmol/L Chloride (101-111) mmol/L Carbon Dioxide (21-32) mmol/L Anion Gap (6-13) BUN (6-20) mg/dL Creatinine (0.6-1.2) mg/dL Estimated GFR (MDRD) (>89) Glucose (70-100) mg/dL Lactic Acid 3.2 H* (0.5-2.2) mmol/L Calcium (8.5-10.3) mg/dL Total Bilirubin (0.2-1.0) mg/dL AST (10-42) IU/L ALT (10-60) IU/L Alkaline Phosphatase (42-121) IU/L Troponin I High Sens 4.8 (2.3-19.7) ng/L B-Natriuretic Peptide (5-100) pg/mL Total Protein (6.7-8.2) g/dL Albumin (3.2-5.5) g/dL Globulin (2.1-4.2) g/dL Albumin/Globulin Ratio (1.0-2.2) Urine Color Urine Clarity (CLEAR) Urine pH (5.0-7.5) PH Ur Specific [place] (1.002-1.030) Urine Protein (NEGATIVE) mg/dL Urine Glucose (UA) (NEGATIVE) mg/dL Urine Ketones (NEGATIVE) mg/dL Urine Occult Blood (NEGATIVE) Urine Nitrite (NEGATIVE) Urine Bilirubin (NEGATIVE) Urine Urobilinogen (NORMAL) E.U./dL Ur Leukocyte Esterase (NEGATIVE) Urine RBC (0-5) /HPF Urine WBC (0-3) /HPF Ur Squamous Epith Cells (<= Few) Urine Bacteria (None Seen) /HPF Urine Culture Comments Nasal Adenovirus (PCR) NOT DETECTED Nasal B. parapertussis DNA (PCR) NOT DETECTED Nasal Coronavir 229E PCR NOT DETECTED Nasal Coronavir HKU1 PCR NOT DETECTED Nasal Coronavir NL63 PCR NOT DETECTED Nasal Coronavir OC43 PCR NOT DETECTED Nasal Enterovir/Rhinovir PCR DETECTED A Nasal Influenza B PCR NOT DETECTED Nasal Influenza A PCR NOT DETECTED Nasal Parainfluen 1 PCR NOT DETECTED Nasal Parainfluen 2 PCR NOT DETECTED Nasal Parainfluen 3 PCR NOT DETECTED Nasal Parainfluen 4 PCR NOT DETECTED Nasal RSV (PCR) NOT DETECTED Nasal B.pertussis DNA PCR NOT DETECTED Nasal C.pneumoniae (PCR) NOT DETECTED Dominik Human Metapneumo PCR NOT DETECTED Nasal M.pneumoniae (PCR) NOT DETECTED Nasal SARS-CoV-2 (PCR) NOT DETECTED Urine Opiates Screen (NEGATIVE) Ur Oxycodone Screen (NEGATIVE) Urine Methadone Screen (NEGATIVE) Ur Propoxyphene Screen (NEGATIVE) Ur Barbiturates Screen (NEGATIVE) Ur Tricyclics Screen (NEGATIVE) Ur Phencyclidine Scrn (NEGATIVE) Ur Amphetamine Screen (NEGATIVE) U Methamphetamines Scrn (NEGATIVE) U Benzodiazepines Scrn (NEGATIVE) Urine Cocaine Screen (NEGATIVE) U Cannabinoids Screen (NEGATIVE) 02/06/20 02/06/20 Range/Units 18:06 18:06 WBC 14.4 H (4.8-10.8) x10^3/uL RBC 4.21 L (4.70-6.10) 10^6/uL Hgb 13.3 L (14.0-18.0) g/dL Hct 39.6 L (42.0-52.0) % MCV 94.1 H (80.0-94.0) fL MCH 31.6 H (27.0-31.0) pg MCHC 33.6 (32.0-36.0) g/dL RDW 11.8 L (12.0-15.0) % Plt Count 284 (130-450) 10^3/uL MPV 9.0 (7.4-11.4) fL Neut # (Auto) Not Reportable Lymph # (Auto) Not Reportable [place] # (Auto) Not Reportable Eos # (Auto) Not Reportable Baso # (Auto) Not Reportable Absolute Nucleated RBC Not Reportable Total Counted 100 Band Neuts % (Manual) 29 H (0 - 10) % Reactive Lymphs % (Man) 7 % Abnorm Lymph % (Manual) 0 % Metamyelocytes % 8 H ( - 0) % Nucleated RBC % Not Reportable Neutrophils # (Manual) 9.8 H (1.5-6.6) 10^3/uL Lymphocytes # (Manual) 2.3 (1.5-3.5) 10^3/uL Monocytes # (Manual) 1.2 H (0.0-1.0) 10^3/uL Eosinophils # (Manual) 0.0 (0-0.7) 10^3/uL Basophils # (Manual) 0.0 (0-0.1) 10^3/uL Differential Comment MANUAL DIFFERENTIAL Manual Slide Review Platelet Estimate NORMAL (130-450,000) (NORMAL) Platelet Morphology NORMAL APPEARANCE (NORMAL) RBC Morph Micro Appear NORMAL APPEARANCE (NORMAL) Sodium 135 (135-145) mmol/L Potassium 4.2 (3.5-5.0) mmol/L Chloride 96 L (101-111) mmol/L Carbon Dioxide 26 (21-32) mmol/L Anion Gap 13.0 (6-13) BUN 28 H (6-20) mg/dL Creatinine 1.7 H (0.6-1.2) mg/dL Estimated GFR (MDRD) 52 L (>89) Glucose 105 H (70-100) mg/dL Lactic Acid (0.5-2.2) mmol/L Calcium 8.1 L (8.5-10.3) mg/dL Total Bilirubin 1.0 (0.2-1.0) mg/dL AST 27 (10-42) IU/L ALT 28 (10-60) IU/L Alkaline Phosphatase 71 (42-121) IU/L Troponin I High Sens (2.3-19.7) ng/L B-Natriuretic Peptide (5-100) pg/mL Total Protein 7.1 (6.7-8.2) g/dL Albumin 3.3 (3.2-5.5) g/dL Globulin 3.8 (2.1-4.2) g/dL Albumin/Globulin Ratio 0.9 L (1.0-2.2) Urine Color Urine Clarity (CLEAR) Urine pH (5.0-7.5) PH Ur Specific [place] (1.002-1.030) Urine Protein (NEGATIVE) mg/dL Urine Glucose (UA) (NEGATIVE) mg/dL Urine Ketones (NEGATIVE) mg/dL Urine Occult Blood (NEGATIVE) Urine Nitrite (NEGATIVE) Urine Bilirubin (NEGATIVE) Urine Urobilinogen (NORMAL) E.U./dL Ur Leukocyte Esterase (NEGATIVE) Urine RBC (0-5) /HPF Urine WBC (0-3) /HPF Ur Squamous Epith Cells (<= Few) Urine Bacteria (None Seen) /HPF Urine Culture Comments Nasal Adenovirus (PCR) Nasal B. parapertussis DNA (PCR) Nasal Coronavir 229E PCR Nasal Coronavir HKU1 PCR Nasal Coronavir NL63 PCR Nasal Coronavir OC43 PCR Nasal Enterovir/Rhinovir PCR Nasal Influenza B PCR Nasal Influenza A PCR Nasal Parainfluen 1 PCR Nasal Parainfluen 2 PCR Nasal Parainfluen 3 PCR Nasal Parainfluen 4 PCR Nasal RSV (PCR) Nasal B.pertussis DNA PCR Nasal C.pneumoniae (PCR) Dominik Human Metapneumo PCR Nasal M.pneumoniae (PCR) Nasal SARS-CoV-2 (PCR) Urine Opiates Screen (NEGATIVE) Ur Oxycodone Screen (NEGATIVE) Urine Methadone Screen (NEGATIVE) Ur Propoxyphene Screen (NEGATIVE) Ur Barbiturates Screen (NEGATIVE) Ur Tricyclics Screen (NEGATIVE) Ur Phencyclidine Scrn (NEGATIVE) Ur Amphetamine Screen (NEGATIVE) U Methamphetamines Scrn (NEGATIVE) U Benzodiazepines Scrn (NEGATIVE) Urine Cocaine Screen (NEGATIVE) U Cannabinoids Screen (NEGATIVE) ABX Reporting Has patient been on IV antibiotics over the past 48 hours?: Yes Sepsis Event Note (H) - Evaluation Current Stage of Sepsis: Severe sepsis Possible source of Sepsis: positive: Pulmonary - Sepsis Criteria Sepsis Criteria: Recorded Temperature greater than 38.3C or Less than 36C, Recorded Heart Rate greater than 90 bpm, Recorded Respiratory Rate greater than 20, Respiratory: Increasing oxygen requirements, WBC count greater than 10% bands, WBC count greater than 12,000 or less than 4000, Renal: urine output less than 0.5ml/kg/hr for 2 hours or creatinine gr, Metabolic: lactate > 2 mmol/L Assessment/Plan - Problem List (1) Severe sepsis Impression: Presents with severe sepsis given the leukocytosis with bands, tachycardia, fever, elevated acidosis, and renal insufficiency. This is secondary to the community-acquired pneumonia and Streptococcus pneumonia bacteremia. His lactic acidosis has since resolved. He is no longer febrile and his blood pressure is stable. (2) Acute respiratory failure with hypoxia Impression: He is hypoxic requiring 4 L of oxygen. This is secondary to the community- acquired pneumonia. We will continue to treat underlying infection with antibiotics as mentioned above. Continue supplemental oxygen for goal saturation greater than 92%. (3) Community acquired pneumonia Impression: This is the source of his sepsis. He has an impressive right middle lobe infiltrate on imaging and is hypoxic requiring 4 L of oxygen. He also has associated bacteremia. He has been started on ceftriaxone and azithromycin which we will continue. We will monitor him closely as if he fails to improve, will need repeat imaging to evaluate for complications such as empyema. We will also check for HIV. Qualifiers: Laterality: right Lung location: middle lobe of lung Qualified Code(s): J18.9 - Pneumonia, unspecified organism (4) Bacteremia due to Streptococcus pneumoniae Impression: Initial blood cultures are growing gram-positive cocci in aerobic bottle. Streptococcus pneumonia is detected by the [facility] fire panel. He will remain on ceftriaxone IV for the bacteremia and pneumonia. (5) Methamphetamine abuse Impression: He does admit to near daily methamphetamine and heroin use. He was counseled on the importance of cessation. Will place social work consult to provide him with resources to assist with this. (6) Acute kidney injury Impression: This has resolved.
[2020-02-07] MEDS: SODIUM CHLORIDE 0.9% 1,000 ML IV SCH ×2 (08:19→18:34)
[2020-02-07] MEDS: ENOXAPARIN 40 MG/0.4 ML SYRINGE SUBQ SCH (08:20)
[2020-02-07] MEDS ORDERED: cefTRIAXone 2 GM in SODIUM CHLORIDE 0.9% MINIBAG 100 ML IV SCH ×2 (09:00)
[2020-02-07] MEDS ORDERED: cefTRIAXone 1 GM in SODIUM CHLORIDE 0.9% MINIBAG 100 ML IV SCH (09:00)
[2020-02-07] MEDS ORDERED: AZITHROMYCIN 250 MG TABLET PO SCH (17:00)
[2020-02-07] MEDS ORDERED: AZITHROMYCIN INJ 500 MG in SODIUM CHLORIDE 0.9% 250 ML IV SCH (19:00)
[2020-02-08] MEDS: SODIUM CHLORIDE FLUSH 0.9% 10 ML SYRINGE IVP SCH ×2 (02:35→08:05)
[2020-02-08] MEDS: SODIUM CHLORIDE 0.9% 1,000 ML IV SCH (04:05)
[2020-02-08 05:21] LABS: BASOPHILS % (AUTO) 0.1 %; EOSINOPHILS % (AUTO) 0.1 %; HGB - HEMOGLOBIN 11.7 g/dL (14.0-18.0); LYMPHOCYTES # (AUTO) 1.8 10^3/uL (1.5-3.5); LYMPHOCYTES % (AUTO) 12.3 %; MEAN CORPUSCULAR HEMOGLOBIN 32.1 pg (27.0-31.0); MEAN CORPUSCULAR HGB CONC 34.1 g/dL (32.0-36.0); MEAN PLATELET VOLUME 9.1 fL (7.4-11.4); MONOCYTES # (AUTO) 0.7 10^3/uL (0.0-1.0); MONOCYTES % (AUTO) 4.8 %; NEUTROPHILS # (AUTO) 11.8 10^3/uL (1.5-6.6); NEUTROPHILS % (AUTO) 82.5 %; PLT - PLATELET COUNT 282 10^3/uL (130-450); RED BLOOD COUNT 3.65 10^6/uL (4.70-6.10); RED CELL DISTRIBUTION WIDTH 11.8 % (12.0-15.0); WHITE BLOOD COUNT 14.3 x10^3/uL (4.8-10.8)
[2020-02-08 05:31] LABS: CALCIUM 8.1 mg/dL (8.5-10.3); CREATININE 0.8 mg/dL (0.6-1.2)
[2020-02-08] MEDS: PANTOPRAZOLE 40 MG TABLET PO SCH (06:27)
[2020-02-08] MEDS ORDERED: POTASSIUM CHLORIDE 20 MEQ TABLET PO ONE ×2 (06:59→08:00)
--- NOTE | 2020-02-08 07:25 | PROVIDER PROGRESS NOTE ---
Subjective - Prog Note Date Prog Note Date: 02/08/20 - Subjective Subjective: Reports feeling better. Denies any shortness of breath. Still has a little cough. Reports no abdominal pain. Current Medications - Current Medications Current Medications: Active Medications Acetaminophen (Acetaminophen 325 Mg Tablet) 650 mg PO Q4HR PRN PRN Reason: Pain 1 to 4 Azithromycin (Azithromycin 250 Mg Tablet) 500 mg PO DAILY@1700 [facility] Stop: 02/08/20 17:01 Last Admin: 02/07/20 17:00 Dose: 500 mg Documented by: Enoxaparin Sodium (Enoxaparin 40 Mg/0.4 Ml Syringe) 40 mg SUBQ DAILY [facility] Last Admin: 02/07/20 08:20 Dose: 40 mg Documented by: Sodium Chloride (Normal Saline 0.9%) 1,000 mls @ 100 mls/hr IV .Q10H [facility] Last Admin: 02/08/20 04:05 Dose: 100 mls/hr Documented by: Ceftriaxone Sodium 2 gm/ (Sodium Chloride) 100 mls @ 200 mls/hr IV DAILY [facility] Ondansetron HCl (Ondansetron 4 Mg/2 Ml Vial) 4 mg IVP Q6HR PRN PRN Reason: Nausea / Vomiting Pantoprazole Sodium (Pantoprazole 40 Mg Tablet) 40 mg PO QDAC [facility] Last Admin: 02/08/20 06:27 Dose: 40 mg Documented by: Potassium Chloride (Potassium Chloride 20 Meq Tablet) 40 meq PO ONCE ONE Stop: 02/08/20 07:25 Sodium Chloride (Sodium Chloride Flush 0.9% 10 Ml Syringe) 10 ml IVP PRN PRN PRN Reason: NEEDED PER PROVIDER ORDERS Last Admin: 02/07/20 08:30 Dose: 10 ml Documented by: Sodium Chloride (Sodium Chloride Flush 0.9% 10 Ml Syringe) 10 ml IVP 0100,0900,1700 [facility] Last Admin: 02/08/20 02:35 Dose: Not Given Documented by: No Known Home Medications 02/06/20 Objective - Vital Signs/Intake & Output Reviewed Vital Signs: Yes Vital Signs: Vital Signs x48h Temp Pulse Resp BP BP Pulse Ox 02/08/20 05:00 37.1 C 82 20 114/70 95 02/07/20 23:52 36.8 C 89 24 105/69 95 Intake & Output: Intake & Output 02/05/20 02/06/20 02/07/20 02/08/20 23:59 23:59 23:59 23:59 Intake Total 4077.157 4255.000 1168.333 Output Total 800 2325 1000 Balance 3277.157 1930.000 168.333 - Objective General Appearance: positive: No acute distress, Alert Eyes Bilateral: positive: Normal inspection, Conjunctivae nml ENT: positive: ENT inspection nml Neck: positive: Nml inspection Respiratory: positive: No respiratory distress, Other (Diminished.). negative: Wheezes, Rales Cardiovascular: positive: Regular rate & rhythm, No murmur. negative: Tachycardia Abdomen: positive: Non-tender, No distention. negative: Tenderness Skin: positive: Warm, Dry Extremities: positive: No pedal edema Neurologic/Psychiatric: positive: Oriented x3, Motor nml - Lab Results Fish Bones: 02/08/20 05:16 02/08/20 05:16 Other Labs: Lab Results x24hrs 02/08/20 02/08/20 Range/Units 05:16 05:16 WBC 14.3 H (4.8-10.8) x10^3/uL RBC 3.65 L (4.70-6.10) 10^6/uL Hgb 11.7 L (14.0-18.0) g/dL Hct 34.3 L (42.0-52.0) % MCV 94.0 (80.0-94.0) fL MCH 32.1 H (27.0-31.0) pg MCHC 34.1 (32.0-36.0) g/dL RDW 11.8 L (12.0-15.0) % Plt Count 282 (130-450) 10^3/uL MPV 9.1 (7.4-11.4) fL Neut # (Auto) 11.8 H (1.5-6.6) 10^3/uL Lymph # (Auto) 1.8 (1.5-3.5) 10^3/uL [place] # (Auto) 0.7 (0.0-1.0) 10^3/uL Eos # (Auto) 0.0 (0.0-0.7) 10^3/uL Baso # (Auto) 0.0 (0.0-0.1) 10^3/uL Absolute Nucleated RBC 0.00 x10^3/uL Nucleated RBC % 0.0 /100WBC Sodium 136 (135-145) mmol/L Potassium 3.3 L (3.5-5.0) mmol/L Chloride 105 (101-111) mmol/L Carbon Dioxide 24 (21-32) mmol/L Anion Gap 7.0 (6-13) BUN 16 (6-20) mg/dL Creatinine 0.8 (0.6-1.2) mg/dL Estimated GFR (MDRD) 124 (>89) Glucose 123 H (70-100) mg/dL Calcium 8.1 L (8.5-10.3) mg/dL ABX Reporting Has patient been on IV antibiotics over the past 48 hours?: Yes Sepsis Event Note (H) - Evaluation Current Stage of Sepsis: Resolved Possible source of Sepsis: positive: Pulmonary - Sepsis Criteria Sepsis Criteria: Recorded Temperature greater than 38.3C or Less than 36C, Recorded Heart Rate greater than 90 bpm, Recorded Respiratory Rate greater than 20, Respiratory: Increasing oxygen requirements, WBC count greater than 10% bands, WBC count greater than 12,000 or less than 4000, Renal: urine output less than 0.5ml/kg/hr for 2 hours or creatinine gr, Metabolic: lactate > 2 mmol/L Assessment/Plan - Problem List (1) Community acquired pneumonia Impression: This was evident on imaging. He also has associated bacteremia. Clinically he is improving as he is now on room air and has been fever free and improving white count. We will continue ceftriaxone. We will hold off on repeating imaging at this time given evidence of improvement. If he does show evidence of decline including fevers, rising white count or hypoxia we will need to reimage him to ensure there is no evidence of empyema. Qualifiers: Laterality: right Lung location: middle lobe of lung Qualified Code(s): J18.9 - Pneumonia, unspecified organism (2) Bacteremia due to Streptococcus pneumoniae Impression: All 4 blood cultures are growing Streptococcus pneumonia. This is secondary to the right middle lobe consolidation. We will repeat blood cultures to ensure clearance. (3) Methamphetamine abuse Impression: He was quite lethargic and fatigued yesterday which may be due to his infection but this also could be due to withdrawal from the methamphetamine. I have consulted social work to provide him with resources for cessation. (4) Severe sepsis Impression: This has now resolved. He presented with fever, leukocytosis, tachycardia, lactic acidosis. This is secondary to Streptococcus pneumonia and associated bacteremia. We will continue antibiotics as mentioned above. (5) Acute respiratory failure with hypoxia Impression: This has resolved. He was initially on 4 L of oxygen but is now back to room air. This is secondary to the pneumonia. (6) Acute kidney injury Impression: This is resolved.
[2020-02-08] MEDS: ENOXAPARIN 40 MG/0.4 ML SYRINGE SUBQ SCH (08:05)
[2020-02-08] MEDS ORDERED: cefTRIAXone 2 GM in SODIUM CHLORIDE 0.9% MINIBAG 100 ML IV SCH (09:00)
[2020-02-08 11:55] VITALS: BP 123/74
--- NOTE | 2020-02-08 12:41 | Discharge Plan ---
Discharge Plan Problem Reviewed?: Yes Disposition: Against Medical Advice Condition: Fair Prescriptions: levoFLOXacin [Levaquin] 750 mg PO QD 14 Days #72 tablet Diet: Regular Activity Restrictions: Activity as Tolerated Instruction Topics: Pneumonia [facility] Concerns: You were seen in the hospital because of pneumonia. This caused you to have a severe infection called sepsis. You had improved but we recommend that you remain hospitalized for further treatment and to monitor for complications. You have decided to leave AGAINST MEDICAL ADVICE. I have sent a prescription for antibiotics to [facility]. Please return to the emergency department if you develop fevers, difficulty breathing or feeling unwell. No Smoking: If you smoke, Please STOP! Call for help.
--- NOTE | 2020-02-08 12:53 | DISCHARGE SUMMARY ---
"Discharge Summary Admit Date: 02/06/20 Discharge Date: 02/08/20 Discharging Provider: Louis Taylor Code Status: Attempt Resuscitation Condition at Discharge: Fair Discharge Disposition: 07 Against Medical Advice - DIAGNOSES Admission Diagnoses: Sepsis Pneumonia Acute kidney insufficiency Drug use Discharge Diagnoses with Status of Each Condition: Severe sepsis - resolved. Acute respiratory failure with hypoxia - resolved. Community-acquired pneumonia of the right middle lobe of lung - ongoing. Bacteremia due to streptococcus pneumonia - ongoing. Methamphetamine abuse - stable. Acute kidney injury - resolved. - HPI History of Present Illness: H&P per Dr An: Patient is a 49-year-old male with no medical history and currently on no medications who presented to the ED with complaint of dyspnea, hypoxia, tachypnea and a temperature of 102 Fahrenheit. His symptoms have been going on for the past 3 days. He also reports a productive cough of greenish/yellowish sputum. In the ED he was noted to have a temperature as high as 39 C, respiratory rate as high as 30 and oxygen saturation in the 80s on room air. Work-up in the ED included a chest x-ray and a CT angio of the chest which was negative for PE but showed dense right middle and right lower lobe consolidation with air bronchograms. The patient had a white blood cell count of 13 and a lactic acid of 3.2. At bedside he is sleeping but is able to arouse and answer questions appropriately. He denies chest pain, abdominal pain, nausea, vomiting. He denies a previous occurrence of similar symptoms. He smokes heroin and methamphetamine daily. He last did so within 2 hours prior to presentation to the ED. He denies alcohol use and denies ever passing out or blacking out. On auscultation of the lungs he sounds significantly rhonchorous on the right side. He is also tachycardic. As a result of the radiologic, laboratory and clinical findings he was presented for admission for further treatment. - CONSULTS | PROCEDURES Consultations: Social Work. - HOSPITAL COURSE Hospital Course: Patient was admitted for severe sepsis secondary to pneumonia. CT angiogram showed a right middle lobe consolidation. He was treated with ceftriaxone IV and azithromycin. His fevers and lactic acidosis subsided. His acute kidney injury resolved with IV fluids. His white count did improve. Blood cultures have grown Streptococcus pneumonia in all 4 blood cultures. On hospital day 3, the patient decided to leave AGAINST MEDICAL ADVICE. I discussed with him that although he is improving, there is still need for IV antibiotics and we need to ensure his bacteremia has resolved. He states that he feels quite a bit better and he needs to go home to take care of his dog. I offered to have social work assist with this but he declined. I asked if he had any family or friends in the area who could help and he said he did not. I encouraged him to stay hosp italized and to let us assist in any way but he declined. I informed him that if he leaves AGAINST MEDICAL ADVICE then the infection could become more severe and he is at risk for complications including empyema. He states that he will return if he feels worse. I did prescribe him Levaquin 750 mg daily for 14 days. This was sent to the [facility]. I did ask him to return to the emergency room if he develops any fevers, difficulty breathing or just the feeling of being unwell. - ALLERGIES Allergies/Adverse Reactions: Allergies Allergy/AdvReac Type Severity Reaction Status Date / Time No Known Drug Allergies Allergy Verified 02/06/20 18:20 - MEDICATIONS Home Medications: Ambulatory Orders Medication Instructions Recorded Confirmed levoFLOXacin [Levaquin] 750 mg PO QD 14 Days #72 tablet 02/08/20 - PHYSICAL EXAM AT DISCHARGE General Appearance: positive: No acute distress, Alert Eyes Bilateral: positive: Normal inspection, Conjunctivae nml ENT: positive: ENT inspection nml Neck: positive: Nml inspection Respiratory: positive: No respiratory distress, Other (Diminished.). negative: Wheezes, Rales Cardiovascular: positive: Regular rate & rhythm. negative: Tachycardia, Systolic murmur Abdomen: positive: Non-tender, No distention. negative: Tenderness Skin: positive: Warm, Dry Extremities: positive: No pedal edema Neurologic/Psychiatric: positive: Oriented x3, Motor nml. negative: Disoriented to person, Disoriented to place, Disoriented to time Physical Exam Other/Comments: Vital Signs - 24 hr 02/07/20 02/07/20 02/07/20 15:59 16:03 20:00 Temperature 37.5 C 37.3 C Heart Rate [ 99 91 Brachial] Respiratory 18 18 Rate Blood Pressure [Left Brachial artery] Blood Pressure 107/70 105/68 [Right Brachial artery] O2 Saturation 88 L 93 96 02/07/20 02/07/2020 20:59 23:52 05:00 Temperature 36.8 C 37.1 C Heart Rate [ 89 82 Brachial] Respiratory 24 20 Rate Blood Pressure 114/70 [Left Brachial artery] Blood Pressure 105/69 [Right Brachial artery] O2 Saturation 95 95 95 02/08/20 02/08/20 09:00 11:54 Temperature 36.8 C 36.7 C Heart Rate [ 83 84 Brachial] Respiratory 18 18 Rate Blood Pressure [Left Brachial artery] Blood Pressure 121/70 123/74 [Right Brachial artery] O2 Saturation 97 99 - LABS Result Diagrams: 02/08/20 05:16 02/08/20 05:16 - DIAGNOSTIC IMAGING Diagnostic Imaging Results: Final report reviewed - SEPSIS Current Stage of Sepsis: Resolved Possible source of Sepsis: Pulmonary Sepsis Criteria: Recorded Temperature greater than 38.3C or Less than 36C, Recorded Heart Rate greater than 90 bpm, Recorded Respiratory Rate greater than 20, Respiratory: Increasing oxygen requirements, WBC count greater than 10% bands, WBC count greater than 12,000 or less than 4000, Renal: urine output less than 0.5ml/kg/hr for 2 hours or creatinine gr, Metabolic: lactate > 2 mmol/L - FOLLOW UP Follow Up: He was asked to return to the emergency department if he develops any worsening symptoms. - TIME SPENT Time Spent in Discharge (Minutes): 31"
[2020-02-09 13:28] LABS: HIV AG/AB 4TH GEN NON-REACTIVE (NON-REACTIVE)
== END 2020-02-08 13:09 | disposition left against medical advice (07) | DRG 871 ==
LOC: ED 17:38 → MS2 20:27
PROVIDERS: ADMIT Internal Medicine; ATTEND Internal Medicine
DX: A40.3 Sepsis due to Streptococcus pneumoniae (principal); J96.01 Acute respiratory failure with hypoxia; R65.20 Severe sepsis without septic shock; J69.0 Pneumonitis due to inhalation of food and vomit; J68.0 Bronchitis and pneumonitis due to chemicals, gases, fumes and vapors; N17.9 Acute kidney failure, unspecified; E87.2 Acidosis; F11.20 Opioid dependence, uncomplicated; T49.3X1A Poisoning by emollients, demulcents and protectants, accidental (unintentional), initial encounter; E86.0 Dehydration; F15.10 Other stimulant abuse, uncomplicated; F17.210 Nicotine dependence, cigarettes, uncomplicated; Y92.9 Unspecified place or not applicable; Z72.89 Other problems related to lifestyle
CPT/HCPCS: 0202U; 36415; 71045; 71275; 80048; 80053; 80306; 81001; 83605; 83880; 84484; 85025; 87040; 87077; 87150; 87181; 87389; 93005; 93306; 96365; 96367; 99284; 99285; A9270; J1650; J7120; J8499; Q9967; 87086

== ENCOUNTER 2023-05-04 00:25 | Emergency (ER) | payer MEDICAID ==
[2023-05-04 00:34] VITALS: BP 138/79; O2SAT 97
--- NOTE | 2023-05-04 00:38 | ED Physician Documentation ---
History of Present Illness - Stated complaint Stated Complaint: L ARM PX - Chief complaint Chief Complaint: Wound - History obtained from History obtained from: Patient - Additonal information Additional information: HPI from patient. Patient complains of focal swelling and tenderness in his left antecubital fossa. This was of gradual onset approximately 1 week ago without any inciting event. He denies history of similar symptoms. The pain is worse with palpation as well as with movement. At times, the pain radiates up the left arm. He denies fever. He denies IV drug use. He denies any recent medical IV in the left arm including any recent blood draw. Patient says that the pain and swe lling have actually been improving over the last 1 or 2 days. Review of Systems Constitutional: denies: Fever PD PAST MEDICAL HISTORY - Past Medical History Past Medical History: No - Past Surgical History Past Surgical History: Yes General: Hiatal hernia repair Derm: Other - Present Medications Home Medications: Ambulatory Orders Medication Instructions Recorded Confirmed Doxycycline [Vibramycin] 100 mg PO BID #13 tablet 05/04/23 - Allergies Allergies/Adverse Reactions: Allergies Allergy/AdvReac Type Severity Reaction Status Date / Time No Known Drug Allergies Allergy Verified 05/04/23 00:33 - Social History Does the pt smoke?: Yes Smoking Status: Current every day smoker Does the pt drink ETOH?: No Does the pt have substance abuse?: Yes - Immunizations Immunizations are current?: Yes - POLST Patient has POLST: No POLST Status: Full Code PD ED PE NORMAL - Vitals Vital signs reviewed: Yes - General General: Alert and oriented X 3, No acute distress, Well developed/nourished PD ED PE EXPANDED - Extremities Extremities: Other (there is subtle, focal swelling midline left antecutibal fossa with mild tenderness; there is no fluctuance nor palpable margins to suggest abscess. the area is midly hyperpigmented and hyperkeratotic) ROSHNI UE/Hands Visual: 1 - swelling, tenderness Results - Vitals Vitals: Vital Signs - 24 hr 05/04/23 00:28 Temperature 36.4 C L Heart Rate 82 Respiratory 14 Rate Blood Pressure 138/79 H O2 Saturation 97 Oxygen O2 Source Room air PD Medical Decision Making - ED course Complexity details: considered differential, d/w patient ED course: Patient presents with atraumatic, mild/subtle swelling and tenderness that is focal/localized to the left antecubital fossa. Affected area is approximately 1.5 cm diameter. Denies injury and denies any IV drug use. The exam does not s uggest abscess. The etiology of his symptoms is not apparent at this time, but differential would include a focal cellulitis and thus he is given the first dose of doxycycline in the ED and a prescription for a 1-week course of doxycycline is provided. Return precautions reviewed. Departure - Departure Disposition: 01 Home, Self Care Clinical Impression: Cellulitis Condition: Good Instructions: ED Staph Infec Abx Tx Only Prescriptions: Doxycycline [Vibramycin] 100 mg PO BID #13 tablet Comments: The cause of your left arm swelling is not apparent at this time, but, as we discussed, 1 possible explanation is cellulitis. This is a skin infection that typically responds well to antibiotics. You were given the first dose of the antibiotic (doxycycline) in the emergency department, and I am providing you with a 1-week prescription for the antibiotic. Forms: PCP List Discharge Date/Time: 05/04/23 01:02
[2023-05-04] MEDS: DOXYCYCLINE 100 MG TABLET PO STA (01:01)
== END 2023-05-04 01:02 | disposition home or self-care (01) ==
LOC: ED 00:25
DX: L03.114 Cellulitis of left upper limb (principal); F17.200 Nicotine dependence, unspecified, uncomplicated
CPT/HCPCS: 99282; 99283; A9270